=== PATIENT | male | born 1975 | race Caucasian/White ===

== ENCOUNTER 2018-05-22 19:52 | Emergency (ER) | payer OTHER ==
[2018-05-22] MEDS: LIDOCAINE 2% W/EPIN INJ 20ML **PRES FREE INJ (20:45)
[2018-05-22] MEDS: AUGMENTIN 875 MG TAB PO (22:49)
== END 2018-05-22 22:52 | disposition home or self-care (01) ==
LOC: M ED 19:52
DX: S01.01XA Laceration without foreign body of scalp, initial encounter (principal); J32.9 Chronic sinusitis, unspecified; W16.622A Jumping or diving into natural body of water striking bottom causing other injury, initial encounter; Y92.89 Other specified places as the place of occurrence of the external cause; M54.9 Dorsalgia, unspecified; C85.90 Non-Hodgkin lymphoma, unspecified, unspecified site; Z79.899 Other long term (current) drug therapy
CPT/HCPCS: 70450

== ENCOUNTER → 2019-05-18 | Outpatient (REF) | payer OTHER ==
[~2019-05-18] MED LIST: AUGM875T28 PO; ESCI5SOL3 PO; GABA-845 PO; LEVO-88 PO; PANT20TA2 PO; PERC5TAB12 PO; ZOLP5TAB PO
== END ==
LOC: M LAB REF 16:10
PROVIDERS: ATTEND Physician Assistant
DX: R19.7 Diarrhea, unspecified (principal)